=== PATIENT | female | born 1975 | race Caucasian/White ===

== ENCOUNTER 2019-03-24 17:07 | Emergency (ER) | payer OTHER ==
[~2019-03-24 17:07] MED LIST: ISOVUE-370 76%-LOCM 1 ML ONE
[2019-03-24 18:22] LABS: Bilirubin Negative (Negative); Blood, Urine Negative (Negative); Clarity Clear (Clear); Glucose, Urine (Dipstick) Normal (Negative); Leukocyte Negative Leu/uL (Negative); Nitrite Negative (Negative); Protein, Urine (Dipstick) Negative (Neg-Trace); Urobilinogen Normal mg/dL (Less than 2)
[2019-03-24 18:26] LABS: Pregnancy Test - Urine (BHCG) Negative (Negative); Pregu Control Background? CLEAR/WHITE (CLR/WHITE); Pregu Control Bar Appear? YES (CONTROL BAR)
[2019-03-24] MEDS ORDERED: Morphine 4 MG/ML VIAL ONE (18:47)
[2019-03-24] MEDS ORDERED: Ondansetron PF 4 MG/2 ML Vial ONE (18:48)
--- NOTE | 2019-03-24 19:10 | CT ---
CT OF ABDOMEN AND PELVIS PERFORMED WITH INTRAVENOUS CONTRAST ENHANCEMENT: 03/24/19 HISTORY: Lower abdominal pain started yesterday. History of and gallbladder surgery. The lung bases show some reticular changes in the bases which could represent gravity dependent atele ctasis or some scar. The liver, spleen, and pancreas regions appear unremarkable. The gallbladder has been removed. Right and left adrenal glands are normal in appearance. There is a punctate mid to lower pole right r enal calculus present. The right renal pelvis is slightly prominent but there is no ureteral dilatati on. There is no significant periaortic or mesenteric lymphadenopathy noted. No bowel wall abnormaliti es. CT OF PELVIS PERFORMED WITH CONTRAST ENHANCEMENT: The appendix appears unremarkable. There are small follicles involving the adnexa. Some minimal sigmo id diverticular changes seen. There is some minimal fat stranding associated with these changes and t his could represent some minimal early diverticulitis type changes. IMPRESSION: 1. Punctate nonobstructing right renal calculus. 2. Minimal sigmoid diverticulosis; however, there is some fat stranding associated with this whi ch suggests possibly some minimal early diverticulitis type change. POS: JOE
[2019-03-24 19:14] LABS: #Eosinphils 0.3 thou/uL (0.0-0.7); #Monocytes 1.5 thou/uL (0.11-0.59); #Neutrophils 10.9 thou/uL (1.40-6.50); %Basophils 0.1 % (0.0-1.0); %Eosinophils 2.1 % (0.0-10.0); %Lymphocytes 13.7 % (21.0-51.0); %Neutrophils 74.2 % (42.0-75.0); Hemoglobin 14.5 g/dL (12.0-16.0); Mean Corpuscular HGB CONC 34.1 g/dL (32.0-36.0); Mean Corpuscular Hemoglobin 29.9 pg (27.0-31.0); Mean Corpuscular Volume 87.8 fL (78.0-98.0); Mean Platelet Volume 8.1 fL (7.4-10.4); Platelet Count 214 thou/uL (130-400); RBC Distribution Width 11.5 % (11.5-14.5); Red Blood Cell (RBC) Count 4.85 mill/uL (4.20-5.40); White Blood Cell (WBC) Count 14.7 thou/uL (4.8-10.8)
[2019-03-24 19:40] LABS: ALT (SGPT) 24 U/L (8-55); AST (SGOT) 23 U/L (5-34); Albumin 4.2 g/dL (3.5-5.0); Alkaline Phosphatase 98 U/L (40-110); Anion Gap 11 mmol/L (10-20); BUN (Urea Nitrogen) 13 mg/dL (7.0-18.7); Bilirubin, Total 0.6 mg/dL (0.2-1.2); Calc. Creatinine Clearance 0 mL/min (70-130); Calcium 9.4 mg/dL (7.8-10.44); Carbon Dioxide 26 mmol/L (22-29); Chloride 103 mmol/L (98-107); Estimated GFR-MDRD 64; Globulin 3.1 g/dL (2.4-3.5); Glucose 99 mg/dL (70-105); Lipase 13 U/L (8-78); Potassium 4.2 mmol/L (3.5-5.1); Protein, Total 7.3 g/dL (6.0-8.3); Sodium 136 mmol/L (136-145)
== END 2019-03-24 20:06 | disposition home or self-care (01) ==
LOC: ERS 17:07
DX: K57.32 Diverticulitis of large intestine without perforation or abscess without bleeding (principal); Z79.899 Other long term (current) drug therapy
CPT/HCPCS: 74177; 80053; 81003; 81025; 83690; 85025; 96361; 96374; 96375; J2270; J2405

== ENCOUNTER 2019-07-20 08:45 | Outpatient (CLI) | payer OTHER ==
[2019-07-20 14:59] LABS: #Basophils 0.1 thou/uL (0.0-0.2); #Eosinphils 0.3 thou/uL (0.0-0.7); #Lymphocytes 2.4 thou/uL (1.20-3.40); #Monocytes 0.5 thou/uL (0.11-0.59); %Eosinophils 4.1 % (0.0-10.0); %Lymphocytes 38.3 % (21.0-51.0); %Monocytes 8.5 % (0.0-10.0); %Neutrophils 48.1 % (42.0-75.0); Hemoglobin 14.7 g/dL (12.0-16.0); Mean Corpuscular HGB CONC 33.8 g/dL (32.0-36.0); Mean Corpuscular Hemoglobin 30.2 pg (27.0-31.0); Mean Corpuscular Volume 89.3 fL (78.0-98.0); Mean Platelet Volume 8.1 fL (7.4-10.4); Platelet Count 212 thou/uL (130-400); RBC Distribution Width 11.8 % (11.5-14.5); Red Blood Cell (RBC) Count 4.86 mill/uL (4.20-5.40); White Blood Cell (WBC) Count 6.2 thou/uL (4.8-10.8)
[2019-07-20 15:09] LABS: Hemoglobin A1c 5.1 % (4.0-6.0)
[2019-07-20 15:25] LABS: Anion Gap 11 mmol/L (10-20); BUN (Urea Nitrogen) 14 mg/dL (7.0-18.7); Calc. Creatinine Clearance 0 mL/min (70-130); Carbon Dioxide 24 mmol/L (22-29); Chloride 108 mmol/L (98-107); Estimated GFR-MDRD 60; Glucose 89 mg/dL (70-105); Potassium 4.1 mmol/L (3.5-5.1); Sodium 139 mmol/L (136-145)
== END 2019-07-20 08:46 | disposition home or self-care (01) ==
LOC: LABBT 08:45
PROVIDERS: ATTEND Surgery
DX: Z01.812 Encounter for preprocedural laboratory examination (principal); K57.92 Diverticulitis of intestine, part unspecified, without perforation or abscess without bleeding
CPT/HCPCS: 80048; 83036; 85025

== ENCOUNTER 2019-07-20 14:00 | Inpatient (IN) | payer OTHER ==
[2019-07-20 14:17] VITALS: BMI 27.1
[2019-07-24] MEDS ORDERED: ceFOXitin 2 GM/50 ML Duplex BAG ONE (06:20)
[2019-07-24] MEDS ORDERED: Midazolam HCl 2 mg/2 ml Vial ONE (06:34)
[2019-07-24] MEDS ORDERED: Fentanyl 100 MCG/2 ML VIAL ONE ×5 (06:34→11:08)
[2019-07-24] MEDS ORDERED: Lidocaine 1% w/Epinephrine 1:100K 20 ML VIAL ONE (06:48)
[2019-07-24] MEDS ORDERED: Bupivacaine 0.25% HCL 30 ML VIAL ONE (06:48)
[2019-07-24] MEDS ORDERED: Ondansetron HCl/PF 4 MG/2 ML Vial IVP PRN (08:20)
[2019-07-24] MEDS ORDERED: Promethazine HCl 25 MG/ML VIAL IM PRN ×3 (08:20→15:54)
[2019-07-24] MEDS ORDERED: Promethazine HCl 25 MG/ML VIAL SLOW IVP PRN (08:20)
[2019-07-24] MEDS ORDERED: cefOXitin 2 GM VIAL ONE (09:44)
[2019-07-24] MEDS ORDERED: Naloxone HCl 0.4 mg/ml Vial IV PRN (10:46)
[2019-07-24] MEDS ORDERED: fentaNYL Citrate/PF 2,000 MCG in Sodium Chloride 0.9% 60 ML IV PRN (10:46)
[2019-07-24] MEDS ORDERED: diphenhydrAMINE 25 MG CAP PO PRN (10:46)
[2019-07-24] MEDS ORDERED: diphenhydrAMINE 50 MG/ML VIAL IM/IV PRN (10:46)
[2019-07-24] MEDS ORDERED: Ondansetron PF 4 MG/2 ML Vial IVP PRN ×2 (10:46→15:54)
[2019-07-24] MEDS ORDERED: Zolpidem Tartrate 5 MG TAB PO PRN (10:46)
[2019-07-24] MEDS ORDERED: PHENYLEPHRINE-NS 100 MCG/ML 10 ML SYRINGE ONE (11:16)
[2019-07-24] MEDS ORDERED: Bupivacaine HCl 0.5%/Epinephrine 1:200,000/PF 30 ml Vial ONE (11:16)
[2019-07-24] MEDS ORDERED: Lidocaine 1% PF 5 ML VIAL ONE (11:16)
[2019-07-24] MEDS ORDERED: Rocuronium Bromide 10 MG/ML (10ML VIAL) ONE (11:16)
[2019-07-24] MEDS ORDERED: Glycopyrrolate 0.2 MG/ML 5 ML SYRINGE ONE (11:16)
[2019-07-24] MEDS ORDERED: Dexamethasone 20 MG/5 ML VIAL ONE (11:16)
[2019-07-24] MEDS ORDERED: Ketorolac Tromethamine 30 MG/ML VIAL ONE (11:16)
[2019-07-24] MEDS ORDERED: PROPOFOL 200 MG/20 ML VIAL ONE (11:16)
[2019-07-24] MEDS ORDERED: Ondansetron PF 4 MG/2 ML Vial ONE (11:16)
--- NOTE | 2019-07-24 13:54 | OP ---
DATE OF PROCEDURE: 07/24/2019 PREOPERATIVE DIAGNOSIS: Chronic diverticulitis. POSTOPERATIVE DIAGNOSIS: Chronic diverticulitis. PROCEDURES PERFORMED: 1. Left colectomy, laparoscopic hand assist, low pelvic anastomosis. 2. Mobilization of splenic flexure, laparoscopic with low pelvic anastomosis. ANESTHESIA: General. ESTIMATED BLOOD LOSS: 100 mL. COMPLICATIONS: None. FINDINGS: No leak on air insufflation test. DESCRIPTION OF PROCEDURE: The patient was taken to the operating room and laid supine on the operating room table. She had undergone TAP blocks in the preop holding area by anesthesia. Taken to the operating room and laid supine on the operating room table, after general anesthetic was obtained, a Tidwell was placed. She was placed in lithotomy position. OG tube was used to decompress the stomach. The abdomen was prepped and draped in a sterile fashion. Left subcostal 5-mm Optiview trocar was placed and high-flow pneumoperitoneum was obtained. A 12-mm right lower quadrant port, a 5-mm port was placed at the umbilicus and a suprapubic 5-mm port were all placed under direct visualization. The sigmoid colon was elevated and its medial mesentery was incised using cautery. The ureter was found and excluded from the rest of the dissection. Dissection was taken down and the base of the JACQUELINE was skeletonized. The JACQUELINE was taken in two fires using a laparoscopic LigaSure. Dissection was taken down into the pelvis, again avoiding both ureters and a circumferential dissection of the colon was performed all the way to the level of the rectosigmoid junction. Left colon was then mobilized up avoiding the ureter. The splenic flexure was mobilized in the usual fashion by taking all splenic flexure attachments. The greater omentum was taken off the transverse colon. This allowed the distal transverse colon to come down in the pelvis under no tension. Hand-assist port was placed in left lower quadrant. Left hand was placed in the abdomen and used to retract the colon up at the rectosigmoid junction. Laparoscopic 60 mm stapler was used to fire across the rectosigmoid junction, it took two loads. The colon was then able to be brought up and out through the hand-assist port. Location of the proximal anvil placement was found. This was the distal transverse colon. A colotomy was made. The anvil was passed proximally and a sharp pin brought out on the antimesenteric surface of the colon below. The colon was stapled off just distal to this. This colon segment was stable to reach down in the pelvis under no tension. The top of the hand-assist port was replaced and was placed back in the abdomen. The base of the EEA was brought up through the rectum. Its sharp pin brought out on the antimesenteric surface of the colon below, connected to the anvil from above. The stapler was tightened down and fired. There were two good rings of tissue. There was no air leakage on insufflation under saline. The pelvis was irrigated. There was no ongoing bleeding. There was no injury to any intraabdominal structures. The 12-mm trocar site in the right lower quadrant was closed using GraNee needle and 0 Vicryl tie. All ports were removed under camera visualization. Pneumoperitoneum was let down. Small bowel was run through the hand-assist port to make sure there was no obvious injury, there was not. The hand-assist port fascia site was closed anterior and posterior using running PDS suture. The wounds were all irrigated copiously including the hand-assist port using sterile solution and the skin was closed using 3-0 Vicryl, 4-0 Monocryl, and Dermabond. The patient was sent to Recovery in stable condition. All instrument counts, needle counts, and lap counts were correct. Job ID: [id number]
[2019-07-24] MEDS ORDERED: hydrALAZINE 20 MG/ML VIAL SLOW IVP PRN (15:54)
[2019-07-24] MEDS ORDERED: cefOXitin Sodium 1 GM in Sodium Chloride 0.9% 100 ML IVPB SCH (16:00)
[2019-07-24] MEDS: Sodium Chloride 0.9% 1,000 ML IV SCH (16:12)
[2019-07-24] MEDS ORDERED: cefOXitin Sodium/Dextrose,Iso 1 GM in Premix Bag 1 BAG IVPB SCH (16:30)
[2019-07-24] MEDS: cefOXitin Sodium/Dextrose,Iso 1 GM in Premix Bag 1 BAG IVPB SCH (17:30)
[2019-07-24] MEDS: Montelukast Sodium 10 mg Tablet PO SCH (20:39)
[2019-07-24] MEDS: Enoxaparin Sodium 40 MG/0.4 ML SYRINGE SC SCH (20:39)
[2019-07-24] MEDS: Famotidine 20 MG TAB PO SCH (20:39)
[2019-07-24] MEDS: Famotidine/PF 20 mg/2ml Vial SLOW IVP SCH (21:32)
[2019-07-25] MEDS: Sodium Chloride 0.9% 1,000 ML IV SCH (01:24)
[2019-07-25] MEDS: cefOXitin Sodium/Dextrose,Iso 1 GM in Premix Bag 1 BAG IVPB SCH (01:24)
[2019-07-25 04:47] LABS: #Basophils 0.1 thou/uL (0.0-0.2); #Lymphocytes 2.2 thou/uL (1.20-3.40); #Neutrophils 6.3 thou/uL (1.40-6.50); %Basophils 0.6 % (0.0-1.0); %Eosinophils 0.3 % (0.0-10.0); %Lymphocytes 23.1 % (21.0-51.0); %Monocytes 10.7 % (0.0-10.0); %Neutrophils 65.3 % (42.0-75.0); Hemoglobin 13.3 g/dL (12.0-16.0); Mean Corpuscular HGB CONC 33.5 g/dL (32.0-36.0); Mean Corpuscular Hemoglobin 29.8 pg (27.0-31.0); Mean Corpuscular Volume 88.8 fL (78.0-98.0); Platelet Count 204 thou/uL (130-400); RBC Distribution Width 11.5 % (11.5-14.5); Red Blood Cell (RBC) Count 4.48 mill/uL (4.20-5.40); White Blood Cell (WBC) Count 9.6 thou/uL (4.8-10.8)
[2019-07-25 05:20] LABS: Anion Gap 11 mmol/L (10-20); BUN (Urea Nitrogen) 9 mg/dL (7.0-18.7); Calc. Creatinine Clearance 109 mL/min (70-130); Carbon Dioxide 22 mmol/L (22-29); Chloride 107 mmol/L (98-107); Estimated GFR-MDRD 79; Glucose 88 mg/dL (70-105); Potassium 3.9 mmol/L (3.5-5.1); Sodium 136 mmol/L (136-145)
--- NOTE | 2019-07-25 07:34 | PDOC.GSPN ---
Surgery Progress Note: Subj - Subjective Patient reports: no bowel movement, no flatus, still having pain Narrative: Overall doing well 1 day s/p L colectomy with low pelvic anastomosis. No flatus yet. Has been up walking without problems. Reports baseline pain rated 6/10, worse in RLQ, increasing to 10/10 anytime she moves. Mild nausea yesterday immediately post-op, none since. Denies fevers/vomiting. Surgery Progress Note: Obj - Vital signs Vital signs: Vital Signs - Most Recent Temp Pulse Resp BP Pulse Ox 98.2 F 76 16 99/64 96 07/25/19 04:22 07/25/19 04:22 07/25/19 04:22 07/25/19 04:22 07/25/19 04:22 - Physical Exam General: no distress, well developed, well nourished, moderate pain Cardiovascular: regular rate and rhythm Respiratory: clear to auscultation, normal respiratory effort, breath sounds present Abdomen: soft, nondistended, positive bowel sounds, appropriately tender Psychiatric: memory intact, oriented to person, speech is normal Wound: healing well (All surgical wounds well-approximated & without drainage.) Surgery Progress Note: Results - Labs Result Diagrams: 07/25/19 04:37 07/25/19 04:37 Lab results: Laboratory Results - last 24 hr 07/25/19 07/25/19 04:37 04:37 WBC 9.6 RBC 4.48 Hgb 13.3 Hct 39.7 MCV 88.8 MCH 29.8 MCHC 33.5 RDW 11.5 Plt Count 204 MPV 8.0 Neutrophils % 65.3 Lymphocytes % 23.1 Monocytes % 10.7 H Eosinophils % 0.3 Basophils % 0.6 Neutrophils # 6.3 Lymphocytes # 2.2 Monocytes # 1.0 H Eosinophils # 0.0 Basophils # 0.1 Sodium 136 Potassium 3.9 Chloride 107 Carbon Dioxide 22 Anion Gap 11 BUN 9 Creatinine 0.79 Estimated GFR (MDRD) 79 Glucose 88 Calcium 8.0 Surgery Progress Note: A/P - Problem (1) S/P left colectomy Current Visit: Yes Code(s): Z90.49 - ACQUIRED ABSENCE OF OTHER SPECIFIED PARTS OF DIGESTIVE TRACT Status: Acute - Plan Plan: Overall doing well 1 day s/p L colectomy. Consider augmenting current pain control regimen. Anticipate advancing diet per typical protocol. Addendum - Physician - Physician Attestation Date/Time: 07/25/19 1228 I personally performed or re-performed the physical examination and medical decision making. I have verified all student documentation or findings, including history, physical exam and/or medical decision making. POD 1 -full liquids tonight -Doing well -likely home tomorrow
[2019-07-25] MEDS ORDERED: FLU VACC QS2019-20(6MOS UP)/PF 60 MCG/0.5 ML SYRINGE IM ONE (09:00)
[2019-07-25] MEDS: Famotidine/PF 20 mg/2ml Vial SLOW IVP SCH ×2 (09:09→20:29)
[2019-07-25] MEDS: Famotidine 20 MG TAB PO SCH ×2 (09:12→20:29)
[2019-07-25] MEDS ORDERED: Acetaminophen 500 MG TAB PO PRN (10:35)
[2019-07-25] MEDS ORDERED: Acetaminophen 500 MG TAB PO SCH (10:45)
[2019-07-25] MEDS ORDERED: Sodium Chloride 0.9% 1,000 ML IV SCH (12:24)
[2019-07-25] MEDS: Enoxaparin Sodium 40 MG/0.4 ML SYRINGE SC SCH (20:28)
[2019-07-25] MEDS: Montelukast Sodium 10 mg Tablet PO SCH (20:29)
[2019-07-26 03:10] VITALS: TEMP 98.5
[2019-07-26] MEDS: Famotidine/PF 20 mg/2ml Vial SLOW IVP SCH (08:40)
[2019-07-26] MEDS: Famotidine 20 MG TAB PO SCH (08:41)
[2019-07-26] MEDS ORDERED: HYDROcodone/Acetaminophen 10/325 mg Tablet PO PRN ×2 (09:14)
[2019-07-26] MEDS ORDERED: traMADol HCl 50 MG TAB PO PRN ×2 (09:14→09:15)
[2019-07-26] MEDS ORDERED: Fentanyl 100 MCG/2 ML VIAL SLOW IVP PRN (09:15)
[2019-07-26] MEDS ORDERED: Acetaminophen 500 MG TAB PO PRN (09:21)
[2019-07-26 11:47] VITALS: BP 106/65
== END 2019-07-26 15:00 | disposition home or self-care (01) | DRG 331 ==
LOC: SURG A 07-24 05:57
PROVIDERS: ADMIT Surgery; ATTEND Surgery
PROC: 0DBN0ZZ Excision of Sigmoid Colon, Open Approach (ICD-10-PCS; principal; 2019-07-24)
PROC: 0D1L0Z4 Bypass Transverse Colon to Cutaneous, Open Approach (ICD-10-PCS; 2019-07-24)
DX: K57.32 Diverticulitis of large intestine without perforation or abscess without bleeding (principal); Z88.2 Allergy status to sulfonamides; M19.90 Unspecified osteoarthritis, unspecified site; G43.909 Migraine, unspecified, not intractable, without status migrainosus; Z87.442 Personal history of urinary calculi; Z90.49 Acquired absence of other specified parts of digestive tract; Z98.890 Other specified postprocedural states; Z82.49 Family history of ischemic heart disease and other diseases of the circulatory system
CPT/HCPCS: 36415; 80048; 85025; 88307; J0670; J0694; J1100; J1650; J1885; J2001; J2250; J2405; J2704; J3010; S0020

== ENCOUNTER 2020-12-03 07:50 | Outpatient (CLI) | payer OTHER | END 2020-12-03 07:51 | disposition home or self-care (01) | LOC: BICULT 07:50 | PROVIDERS: ATTEND Family Medicine | DX: N92.1 Excessive and frequent menstruation with irregular cycle (principal); R93.89 Abnormal findings on diagnostic imaging of other specified body structures | CPT/HCPCS: 76856 ==

== ENCOUNTER 2020-12-09 10:41 | Outpatient (CLI) | payer OTHER ==
[2020-12-09] MEDS ORDERED: Iopamidol 370 76% 100 ML VIAL ONE (13:34)
== END 2020-12-09 10:42 | disposition home or self-care (01) ==
LOC: CT 10:41
PROVIDERS: ATTEND Physician Assistant Medical
DX: R10.30 Lower abdominal pain, unspecified (principal); R19.7 Diarrhea, unspecified; N20.0 Calculus of kidney; Z90.49 Acquired absence of other specified parts of digestive tract
CPT/HCPCS: 74177; Q9967